=== PATIENT | female | born 1960 | race Caucasian/White ===

== ENCOUNTER 2022-10-16 19:20 | Inpatient (IN) | payer OTHER ==
[2022-10-16 20:19] LABS: Basophils # (A) 0.1 k/uL (0-0.2); Basophils % (A) 1 %; Eosinophils # (A) 0.3 k/uL (0-0.7); Eosinophils % (A) 5 %; HCT 37.2 % (34.0-46.0); HGB 12.5 gm/dL (11.4-16.0); Lymphocytes # (A) 2.5 k/uL (1.0-4.8); Lymphocytes % (A) 35 %; MCH 31.4 pg (25.0-35.0); MCHC 33.6 g/dL (31.0-37.0); MCV 93.5 fL (80.0-100.0); Mean Platelet Volume 9.1; Monocytes # (A) 0.4 k/uL (0-1.0); Monocytes % (A) 6 %; Neutrophils # (A) 3.5 k/uL (1.3-7.7); Neutrophils % (A) 50 %; Platelet Count 219 k/uL (150-450); RBC 3.98 m/uL (3.80-5.40); RDW 13.5 % (11.5-15.5)
[2022-10-16 20:25] LABS: ALT 17 U/L (4-34); AST 27 U/L (14-36); African American GFR (CKD) >90 (>60 ml/min/1.73 sqM); Albumin 3.8 g/dL (3.5-5.0); Alkaline Phosphatase 90 U/L (38-126); Anion Gap 6 mmol/L; Blood Urea Nitrogen 16 mg/dL (7-17); Calcium 8.9 mg/dL (8.4-10.2); Carbon Dioxide 27 mmol/L (22-30); Chloride 106 mmol/L (98-107); Glucose 97 mg/dL (74-99); Lipase 169 U/L (23-300); Non-African American GFR(CKD) 85 (>60 ml/min/1.73 sqM); Potassium 4.1 mmol/L (3.5-5.1); Sodium 139 mmol/L (137-145); Total Bilirubin 0.3 mg/dL (0.2-1.3); Total Protein 6.8 g/dL (6.3-8.2)
[2022-10-16 20:29] LABS: INR 0.9 (<1.2); Partial Thromboplastin Time 22.8 sec (22.0-30.0)
--- NOTE | 2022-10-16 21:12 | XR ---
EXAMINATION TYPE: XR chest 2V DATE OF EXAM: 10/16/2022 COMPARISON: NONE HISTORY: Chest pain TECHNIQUE: 2 views FINDINGS: Heart is normal. Lungs are clear. Diaphragm is normal. Bony thorax is intact. IMPRESSION: No active cardiopulmonary disease. Normal heart.
[2022-10-16] MEDS ORDERED: MORPHINE SULFATE 4 MG/ML SYRINGE IVP STA (22:04)
[2022-10-16] MEDS ORDERED: ACETAMINOPHEN TAB 500 MG TAB PO STA (22:04)
--- NOTE | 2022-10-16 23:41 | CT ---
EXAMINATION TYPE: CT angio chest DATE OF EXAM: 10/16/2022 COMPARISON: None HISTORY: chest pain CT DLP: 1084.4 mGycm Automated exposure control for dose reduction was used. CONTRAST: Performed with IV Contrast, patient injected with 100 mL of Isovue 370. Images obtained from the thoracic inlet to the diaphragm with the IV contrast there are 3-D post proc essed images. There are noncontrast chest images also. There is normal contrast opacification of the pulmonary arteries. No filling defect. There is no medi astinal adenopathy. Thoracic aorta is intact. No aneurysm or dissection. The ascending aorta measures 3.5 cm. There are no hilar masses. There is mild pulmonary emphysema. The lungs are clear of consoli dation. No pleural effusion. No pericardial effusion. The thoracic spine is intact. No compression fracture. The sternum is intact. There is a slight thora cic dextroscoliosis. IMPRESSION: No evidence of pulmonary embolism. No aortic aneurysm or dissection. Mild pulmonary emphysema.
[2022-10-16] MEDS ORDERED: ONDANSETRON 4 MG/2 ML VIAL IVP STA (23:55)
--- NOTE | 2022-10-16 23:55 | ED ---
Chest Pain HPI - General Chief Complaint: Chest Pain Stated Complaint: Chest Pain Time Seen by Provider: 10/16/22 19:23 Source: patient, EMS Mode of arrival: EMS Limitations: no limitations - History of Present Illness Initial Comments: 61-year-old female with no reported past medical history presents emergency department reporting left arm pain. She states that it started last night, approximately 24 hours ago. Describes it as a throbbing burning sensation which radiates down to her elbow. She has no previous history of cardiac disease. Denies fevers, chills or cough. No lower extremity edema. No history of DVT or PE. Denies any associated shortness of breath. Pain did spontaneously resolve however began again this evening. She called her primary care doctor who recommended that she go into the urgent care. Urgent care performed an EKG, was concerned about her symptoms and transported her via EMS to the hospital. She did take 3 full dose aspirin at home. They gave her 1 additional baby aspirin and 1 nitro. The nitro did not alleviate her pain. Does admit to some nausea for which she was given Zofran. Denies ripping or tearing sensation to her back. No other alleviating, precipitating or modifying factors - Related Data Home Medications Medication Instructions Recorded Confirmed Acyclovir [Zovirax] 400 mg PO TID PRN 10/16/22 10/16/22 carisoprodoL [Soma] 350 mg PO TID PRN 10/16/22 10/16/22 Previous Rx's Medication Instructions Recorded Atorvastatin [Lipitor] 40 mg PO HS #30 tab 10/20/22 Valsartan [Diovan] 80 mg PO BID #60 tab 10/20/22 carvediloL [Coreg] 3.125 mg PO BID-W/MEALS #60 tab 10/20/22 Allergies Allergy/AdvReac Type Severity Reaction Status Date / Time Penicillins Allergy Unknown Verified 10/16/22 20:53 Childhood Review of Systems ROS Statement: Those systems with pertinent positive or pertinent negative responses have been documented in the HPI. ROS Other: All systems not noted in ROS Statement are negative. EKG Findings - EKG Comments: EKG Findings:: EKG demonstrates sinus rhythm with a rate of 60. IA interval 161. QRS 94. QTC of 414. There is a biphasic T-wave V1 and V2. No acute ST segment elevations or depressions Past Medical History - Past Family History Mother Additional Family Medical History / Comment(s): TB Father Family Medical History: Coronary Artery Disease (CAD) General Exam Limitations: no limitations General appearance: alert, in no apparent distress Head exam: Present: atraumatic, normocephalic, normal inspection Eye exam: Present: normal appearance, PERRL, EOMI. Absent: scleral icterus, conjunctival injection, periorbital swelling ENT exam: Present: normal exam, mucous membranes moist Neck exam: Present: normal inspection. Absent: tenderness, meningismus, lymphadenopathy Respiratory exam: Present: normal lung sounds bilaterally. Absent: respiratory distress, wheezes, rales, rhonchi, stridor Cardiovascular Exam: Present: regular rate, normal rhythm, normal heart sounds. Absent: systolic murmur, diastolic murmur, rubs, gallop, clicks GI/Abdominal exam: Present: soft, normal bowel sounds. Absent: distended, tenderness, guarding, rebound, rigid Extremities exam: Present: normal inspection, full ROM, normal capillary refill. Absent: tenderness, pedal edema, joint swelling, calf tenderness Back exam: Present: normal inspection Neurological exam: Present: alert, oriented X3, CN II-XII intact Psychiatric exam: Present: normal affect, normal mood Skin exam: Present: warm, dry, intact, normal color. Absent: rash Course Vital Signs 10/16/22 10/16/22 10/17/22 19:21 22:18 01:24 Temperature Pulse Rate 64 73 56 L Pulse Rate [ Pulse Oximetery ] Pulse Rate [ Right Sitting Brachial] Respiratory 20 18 16 Rate Blood Pressure 173/117 173/93 158/95 Blood Pressure [Right Arm Sitting] O2 Sat by Pulse 97 97 96 Oximetry 10/17/22 10/17/22 10/17/22 04:51 07:00 13:50 Temperature Pulse Rate 53 L 59 L 73 Pulse Rate [ Pulse Oximetery ] Pulse Rate [ Right Sitting Brachial] Respiratory 16 18 18 Rate Blood Pressure 154/88 154/88 131/74 Blood Pressure [Right Arm Sitting] O2 Sat by Pulse 98 99 Oximetry 10/17/22 10/17/22 10/17/22 16:33 17:28 19:28 Temperature 98.6 F 98.4 F 97.8 F Pulse Rate Pulse Rate [ Pulse Oximetery ] Pulse Rate [ 62 62 65 Right Sitting Brachial] Respiratory 16 16 16 Rate Blood Pressure Blood Pressure 117/75 117/75 130/75 [Right Arm Sitting] O2 Sat by Pulse 98 98 98 Oximetry 10/17/22 10/17/22 10/18/22 22:10 23:38 01:27 Temperature 97 F L Pulse Rate Pulse Rate [ 63 79 Pulse Oximetery ] Pulse Rate [ Right Sitting Brachial] Respiratory 16 16 Rate Blood Pressure Blood Pressure 112/63 120/69 [Right Arm Sitting] O2 Sat by Pulse 96 Oximetry 10/18/22 10/18/22 10/18/22 02:33 03:40 05:54 Temperature 98.3 F Pulse Rate Pulse Rate [ 63 83 60 Pulse Oximetery ] Pulse Rate [ Right Sitting Brachial] Respiratory 14 Rate Blood Pressure Blood Pressure 141/79 154/82 145/81 [Right Arm Sitting] O2 Sat by Pulse 94 L 100 Oximetry 10/18/22 10/18/22 10/18/22 07:00 08:00 12:00 Temperature 98.5 F Pulse Rate Pulse Rate [ 64 64 67 Pulse Oximetery ] Pulse Rate [ 65 Right Sitting Brachial] Respiratory 18 18 18 Rate Blood Pressure Blood Pressure 145/81 138/83 [Right Arm Sitting] O2 Sat by Pulse 99 99 Oximetry 10/18/22 10/18/22 10/18/22 14:00 16:00 20:00 Temperature 97.7 F Pulse Rate Pulse Rate [ 64 60 65 Pulse Oximetery ] Pulse Rate [ 65 65 Right Sitting Brachial] Respiratory 18 18 16 Rate Blood Pressure Blood Pressure 142/79 [Right Arm Sitting] O2 Sat by Pulse 98 Oximetry 10/18/22 21:36 Temperature Pulse Rate 61 Pulse Rate [ Pulse Oximetery ] Pulse Rate [ Right Sitting Brachial] Respiratory 16 Rate Blood Pressure 128/84 Blood Pressure [Right Arm Sitting] O2 Sat by Pulse 98 Oximetry Chest Pain MDM - MDM Was pt. sent in by a medical professional or institution? no Did you speak to anyone other than the patient for history? EMS Did you review nursing and triage notes? yes and I agree Were old charts reviewed? no Differential Diagnosis? nstemi, stemi, acs, coronary vasospasm, myocarditis, pe, pericarditis, coronary dissection EKG interpreted by me (3pts min.)? yes X-rays interpreted by me (1pt min.)? yes CT interpreted by me (1pt min.)? no U/S interpreted by me (1pt. min.)? no What testing was considered but not performed? (CT, X-rays, U/S, labs)? Why? none What meds were considered but not given? Why? none Did you discuss the management of the patient with other professionals? admitting physician Did you reconcile home meds? yes Was smoking cessation discussed for >3mins.? no Was critical care preformed (if so, how long)? yes 35 minutes Were there social determinants of health that impacted care today? How? (Homelessness, low income, unemployed, alcoholism, drug addiction, transportation, low edu. Level, literacy, decrease access to med. care, [facility], rehab)? none Was there de-escalation of care discussed even if they declined? (Discuss DNR or withdrawal of care, Hospice)? patient is on hospice and is to remain on hospice What co-morbidities impacted this encounter? (DM, HTN, Smoking, COPD, CAD, Cancer, CVA, Hep., AIDS, mental health diagnosis, sleep apnea, morbid obesity)? none Was patient admitted / discharged? Upon arrival patient was placed into room 5. A thorough history and physical exam was performed. A lead EKG is obtained. Patient remained on continuous pu lse ox and cardiac monitoring. Laboratory studies are conducted which demonstrated troponin of 0.494. Patient is sent for a CT of her chest which does not demonstrate [place] embolism, aneurysm or dissection. Patient placed on heparin drip. We'll trend her troponins. Cardiology will be consulted. Patient made nothing by mouth for possible cath Undiagnosed new problem with uncertain prognosis? yes Drug Therapy requiring intensive monitoring for toxicity (Heparin, Nitro, Insulin, Cardizem)? yes, heparin Were any procedures done? no Diagnosis/symptom? acute chest pain, nstemi Acute, or Chronic, or Acute on Chronic? acute Uncomplicated (without systemic symptoms) or Complicated (systemic symptoms)? complicated Side effects of treatment? bleeding Exacerbation, Progression, or Severe Exacerbation] no Poses a threat to life or bodily function? yes Critical Care Time Critical Care Time: Yes Critical Care Time: 35 minutes Disposition Clinical Impression: Chest pain, Acute non-ST elevation myocardial infarction (NSTEMI) Disposition: ADMITTED IP TO THIS [facility] Condition: Stable Is patient prescribed a controlled substance at d/c from ED?: No Time of Disposition: 23:55 Decision to Admit Reason: Admit from EC Decision Date: 10/16/22 Decision Time: 23:55
[2022-10-17] MEDS ORDERED: NALOXONE 0.4 MG/ML 1 ML VIAL IV PRN (00:01)
[2022-10-17] MEDS ORDERED: HEPARIN SODIUM 1,000 UN/ML (10ML VL) IV PRN (00:10)
[2022-10-17] MEDS ORDERED: HEPARIN SODIUM 1,000 UN/ML (10ML VL) IV ONE (00:10)
[2022-10-17] MEDS: HEPARIN SOD,PORK IN 0.45% NACL 25,000 UNIT in 0.45% NACL 1 250ML.BAG IV SCH ×2 (01:26→23:39)
[2022-10-17] MEDS ORDERED: ACETAMINOPHEN TAB 500 MG TAB PO STA (04:39)
[2022-10-17] MEDS: ASPIRIN 81 MG PO SCH (11:06)
[2022-10-17] MEDS: MORPHINE SULFATE 2 MG/ML SYRINGE IVP PRN ×2 (12:10→18:34)
[2022-10-17] MEDS: ONDANSETRON 4 MG/2 ML VIAL IVP PRN (12:10)
--- NOTE | 2022-10-17 12:55 | P.CRDCN ---
History of Present Illness Consult date: 10/17/22 Consult reason: chest pain History of present illness: This is Lalo Restrepo NP, I'm dictating on behalf of Dr. Howard's H&P and A&P The patient was interviewed and examined. HPI: Patient is a pleasant 61-year-old female who initially presented to the hospital with complaints of chest discomfort, pain, numbness. Patient reports that early yesterday morning she woke up to her stomach., Dropping on a roller coaster. She states she got up and administered a Covid test results which was negative. Patient states she lost strength in her legs and lower herself to the ground. She was able to get herself back into her bed, where she states she probably started to feel chest discomfort, left arm numbness and pressure, and a headache. She states the next thing she remembers is waking up around 11 AM the next morning. She reports she was very disoriented at that time, as well as unsure of what day it was or what time it was. This concerned her significantly, and she called her primary care provider for advice. She states that they were unable to get back to her until almost closing time, of which she was advised to go to an urgent care. In the urgent care the patient had an EKG completed which was somewhat suspicious according to the patient, and she was recommended to come to the hospital. The patient presented to the emergency department for further evaluation. In the emergency department her EKG was found to be relatively normal. However she does have elevated troponins 0.494, 0.498, 0.430. We were consulted due to the initial symptoms as well as the troponin elevation. The patient has no reported past medical history except for some chronic pain. The patient was interviewed lying in the bed. She does st ate that she is continuing to have symptoms at this time, stating she has a central chest pressure, with a numbness and tingling feeling that radiates down her arm into her hand. She has received Zofran for nausea as well as morphine for the pain this time. Patient's blood pressure is elevated, her pulse is running high 50s. ROS: [No fever, chills, or rigors] [no cough, phlegm, or expectoration] [no nausea, vomiting, or diarrhea] [no hematuria, dysuria] [no musculoskelatal complaints] [no strokes or seizures] [no skin lesions] EXAMINATION: GENERAL: Well-appearing, well-nourished and in no acute distress. NECK: Supple without JVD or thyromegaly. LUNGS: Breath sounds clear to auscultation bilaterally. Respiration equal and unlabored. No wheezes, rales or rhonchi. HEART: Regular rate and rhythm without murmurs, rubs or gallops. S1 and S2 heard. EXTREMITIES: Normal range of motion, no edema. No clubbing or cyanosis. Peripheral pulses intact and strong. REVIEW OF LABS, ECG & MEDICAL DATA: LABS: White count 7.0, hemoglobin 12.5, platelets 219, sodium 139, potassium 4.1, B1 16, creatinine 0.76, calcium 8.9, magnesium 2.0, serial troponins-0.494, 0.489, 0.430, BNP 664 EKG: Normal sinus rhythm with no ST or elevations or depressions, or T-wave inversions noted. IMAGING: Chest x-ray dated 10/16/2022 demonstrates no active cardiopulmonary disease. Normal heart. CT angiogram of the chest dated 10/16/2022 demonstrates no evidence of pulmonary embolism. No aortic aneurysm or dissection. Mild pulmonary emphysema. VITALS: Pulse 59, respirations 18, blood pressure 154/88, O2 saturation 98% on room air IMPRESSION: 1. Elevated troponins 2. Chest pain/pressure radiating to left arm 3. Left arm paresthesia PLAN: Obtain echocardiogram Check lipid panel Start carvedilol 3.125 mg twice a day Start valsartan 80 mg twice a day Continue heparin Continue aspirin Continue cardiac monitoring Further recommendations based on the patient's results and clinical course Thank you for the consult and allowing us to participate in the care of this patient. Medications and Allergies Home Medications Medication Instructions Recorded Confirmed Type Acyclovir [Zovirax] 400 mg PO TID PRN 10/16/22 10/16/22 History Naproxen [Naprosyn] 500 mg PO BID PRN 10/16/22 10/16/22 History carisoprodoL [Soma] 350 mg PO TID PRN 10/16/22 10/16/22 History Allergies Allergy/AdvReac Type Severity Reaction Status Date / Time Penicillins Allergy Unknown Verified 10/16/22 20:53 Childhood Physical Exam Vitals: Vital Signs Pulse Resp BP Pulse Ox 10/17/22 07:00 59 L 18 154/88 10/17/22 04:51 53 L 16 154/88 98 10/17/22 01:24 56 L 16 158/95 96 10/16/22 22:18 73 18 173/93 97 10/16/22 19:21 64 20 173/117 97 Intake and Output 10/16/22 10/17/22 10/17/22 22:59 06:59 14:59 Other: Weight 98.883 kg Results 10/16/22 19:22 10/16/22 19:22 Cardiac Enzymes 10/16/22 10/16/22 10/17/22 Range/Units 19:22 19:22 03:50 AST 27 (14-36) U/L Troponin I 0.494 H* 0.489 H* (0.000-0.034) ng/mL 10/17/22 Range/Units 07:54 AST (14-36) U/L Troponin I 0.430 H* (0.000-0.034) ng/mL Coagulation 10/16/22 10/17/22 Range/Units 19:22 07:54 PT 10.0 (9.0-12.0) sec APTT 22.8 32.3 H (22.0-30.0) sec CBC 10/16/22 Range/Units 19:22 WBC 7.0 (3.8-10.6) k/uL RBC 3.98 (3.80-5.40) m/uL Hgb 12.5 (11.4-16.0) gm/dL Hct 37.2 (34.0-46.0) % Plt Count 219 (150-450) k/uL Comprehensive Metabolic Panel 10/16/22 Range/Units 19:22 Sodium 139 (137-145) mmol/L Potassium 4.1 (3.5-5.1) mmol/L Chloride 106 (98-107) mmol/L Carbon Dioxide 27 (22-30) mmol/L BUN 16 (7-17) mg/dL Creatinine 0.76 (0.52-1.04) mg/dL Glucose 97 (74-99) mg/dL Calcium 8.9 (8.4-10.2) mg/dL AST 27 (14-36) U/L ALT 17 (4-34) U/L Alkaline Phosphatase 90 (38-126) U/L Total Protein 6.8 (6.3-8.2) g/dL Albumin 3.8 (3.5-5.0) g/dL Current Medications Generic Name Dose Route Start Last Admin Trade Name Freq PRN Reason Stop Dose Admin Aspirin 81 mg 10/17/22 09:45 10/17/22 11:06 Aspirin 81 Mg PO Not Given DAILY [facility] Carvedilol 3.125 mg 10/17/22 12:30 Carvedilol 3.125 Mg Tab PO BID-W/MEALS [facility] Heparin Sodium (Porcine) 0 unit 10/17/22 00:10 Heparin Sodium 1,000 Un/Ml (10ml Vl) IV PER PROTOCOL PRN Low PTT Protocol Heparin Sodium/Sodium Chloride 250 mls @ 9.987 mls/hr 10/17/22 00:15 10/17/22 01:26 25,000 unit/ Sodium Chloride IV 10.1 units/kg/hr .Q24H SEA 9.987 mls/hr Administration Protocol 10.1 UNITS/KG/HR Morphine Sulfate 2 mg 10/17/22 10:25 10/17/22 12:10 Morphine Sulfate 2 Mg/Ml Syringe IVP 2 mg Q4HR PRN Administration Pain/Discomfort Naloxone HCl 0.2 mg 10/17/22 00:01 Naloxone 0.4 Mg/Ml 1 Ml Vial IV Q2M PRN Opioid Reversal Ondansetron HCl 4 mg 10/17/22 10:26 10/17/22 12:10 Ondansetron 4 Mg/2 Ml Vial IVP 4 mg Q6HR PRN Administration Nausea And Vomiting Valsartan 80 mg 10/17/22 12:30 Valsartan 80 Mg Tab PO BID [facility] Intake and Output 10/16/22 10/17/22 10/17/22 22:59 06:59 14:59 Other: Weight 98.883 kg 10/16/22 19:22 10/16/22 19:22
[2022-10-17] MEDS: carvediloL 3.125 MG TAB PO SCH ×2 (13:57→16:07)
[2022-10-17] MEDS: VALSARTAN 80 MG TAB PO SCH ×2 (15:17→20:05)
[2022-10-17 16:50] LABS: Chol/HDL Ratio 2.62 Ratio; VLDL Calculation 18.08 mg/dL (5.00-40.00)
--- NOTE | 2022-10-17 19:07 | CA ---
Transthoracic Echo Report Name: Kristin Adames Age: 61 Gender: F : 1960 Exam Date: 10/17/2022 13:41 Exam Location: [facility] Ht (in): 73 Wt (lb): 218 Ordering Physician: Lalo Restrepo Attending/Referring Phys: Senior Teller Maureen Ocampo RDCS Procedure CPT: Indications: Chest Pain Cardiac Hx: Technical Quality: Technically difficult study Contrast 1: Lumason Total Dose (mL): 4 Contrast 2: Total Dose (mL): MEASUREMENTS (Male / Female) Normal Values 2D ECHO LV Diastolic Diameter PLAX 3.8 cm 4.2 - 5.9 / 3.9 - 5.3 cm LV Systolic Diameter PLAX 2.1 cm IVS Diastolic Thickness 1.8 cm 0.6 - 1.0 / 0.6 - 0.9 cm LVPW Diastolic Thickness 1.5 cm 0.6 - 1.0 / 0.6 - 0.9 cm LV Relative Wall Thickness 0.9 RV Internal Dim ED PLAX 2.8 cm LA Volume 54.9 cm??? 18 - 58 / 22 - 52 cm??? M-MODE Aortic Root Diameter MM 2.1 cm LA Systolic Diameter MM 4.1 cm LA Ao Ratio MM 2.0 AV Cusp Separation MM 2.0 cm DOPPLER AV Peak Velocity 141.3 cm/s AV Peak Gradient 8.0 mmHg AV Mean Velocity 101.5 cm/s AV Mean Gradient 4.5 mmHg AV Velocity Time Integral 29.0 cm MV Area PHT 4.3 cm??? Mitral E Point Velocity 101.7 cm/s Mitral A Point Velocity 59.6 cm/s Mitral E to A Ratio 1.7 MV Deceleration Time 178.3 ms TR Peak Velocity 268.7 cm/s TR Peak Gradient 28.9 mmHg Right Ventricular Systolic Press 31.4 mmHg FINDINGS Left Ventricle Severely increased left ventricular wall thickness. Normal left ventricular systolic function with no obvious regional wall motion abnormalities. Left ventricular ejection fraction is estimated at 55-60 %. Right Ventricle Normal right ventricular size and function. Right ventricular systolic pressure within normal limits. Right Atrium Normal right atrial size. Left Atrium Mildly increased left atrial volume. Mitral Valve Structurally normal mitral valve. Mild mitral regurgitation. Aortic Valve Trileaflet aortic valve. No aortic valve stenosis or regurgitation. Tricuspid Valve Structurally normal tricuspid valve. Mild tricuspid regurgitation. Pulmonic Valve Trace pulmonic regurgitation. Pericardium No pericardial effusion. Aorta Normal size aortic root and proximal ascending aorta. CONCLUSIONS LVH with preserved systolic function Previewed by: Dr. Beau Howard MD (Electronically Signed) Final Date: 17 October 2022 19:06
[2022-10-18] MEDS: MORPHINE SULFATE 2 MG/ML SYRINGE IVP PRN ×3 (02:33→19:43)
[2022-10-18] MEDS: carvediloL 3.125 MG TAB PO SCH ×2 (06:22→17:31)
[2022-10-18] MEDS ORDERED: NITROGLYCERIN SL TABS 0.4 MG TAB SUBLINGUAL PRN (08:46)
[2022-10-18] MEDS ORDERED: ALPRAZolam 0.25 MG TAB PO PRN (08:46)
[2022-10-18] MEDS ORDERED: ASPIRIN 325 MG TAB PO STA (08:46)
[2022-10-18] MEDS ORDERED: ALPRAZolam 0.5 MG TAB PO PRN (08:46)
[2022-10-18 09:14] LABS: Basophils # (A) 0.1 k/uL (0-0.2); Basophils % (A) 1 %; Eosinophils # (A) 0.3 k/uL (0-0.7); Eosinophils % (A) 6 %; HCT 37.8 % (34.0-46.0); HGB 12.3 gm/dL (11.4-16.0); Lymphocytes % (A) 38 %; MCH 30.5 pg (25.0-35.0); MCHC 32.4 g/dL (31.0-37.0); Mean Platelet Volume 8.8; Monocytes # (A) 0.3 k/uL (0-1.0); Monocytes % (A) 5 %; Neutrophils # (A) 2.5 k/uL (1.3-7.7); Neutrophils % (A) 47 %; Platelet Count 188 k/uL (150-450); RBC 4.02 m/uL (3.80-5.40); RDW 13.8 % (11.5-15.5); WBC 5.3 k/uL (3.8-10.6)
[2022-10-18] MEDS: ASPIRIN 81 MG PO SCH (09:19)
[2022-10-18] MEDS: VALSARTAN 80 MG TAB PO SCH ×2 (09:19→19:53)
[2022-10-18 10:08] LABS: African American GFR (CKD) >90 (>60 ml/min/1.73 sqM); Anion Gap 2 mmol/L; Blood Urea Nitrogen 14 mg/dL (7-17); Calcium 8.8 mg/dL (8.4-10.2); Carbon Dioxide 32 mmol/L (22-30); Chloride 106 mmol/L (98-107); Glucose 93 mg/dL (74-99); Non-African American GFR(CKD) 86 (>60 ml/min/1.73 sqM); Potassium 4.4 mmol/L (3.5-5.1); Sodium 140 mmol/L (137-145)
[2022-10-18 11:54] LABS: Prothrombin Time 10.5 sec (9.0-12.0)
--- NOTE | 2022-10-18 12:37 | P.PN ---
Subjective Progress Note Date: 10/18/22 This is Lalo Restrepo NP, I'm dictating on behalf of Dr. Howard's H&P and A&P. Patient was interviewed and examined. Patient is a pleasant 61-year-old female who initially presented to Hospital with acute chest pain. Patient had a normal EKG, but elevated troponin. Patient reports that her symptoms have mostly improved. She states that she has minimal numbness in her left arm. However during the time that we were giving the patient, she had a episode of chest pain which she states was in the same spot that he has been on the left side of her chest. We obtained a repeat EKG, which did not demonstrate any significant changes. The patient was started on carvedilol and valsartan yesterday, which has significantly improved her blood pressure. Patient had a lipid panel completed, which is insignificant. Patient had an echocardiogram completed yesterday which demonstrated left ventricular h ypertrophy with preserved systolic function. GENERAL: Well-appearing, well-nourished and in no acute distress. NECK: Supple without JVD or thyromegaly. LUNGS: Breath sounds clear to auscultation bilaterally. Respiration equal and unlabored. No wheezes, rales or rhonchi. HEART: Regular rate and rhythm without murmurs, rubs or gallops. S1 and S2 heard. EXTREMITIES: Normal range of motion, no edema. No clubbing or cyanosis. Peripheral pulses intact and strong. VITALS: Temp 98.5, pulse 64, respirations 18, blood pressure 145/81, O2 saturation 99% on room air TELEMETRY: Normal sinus rhythm LABS: White count 5.3, hemoglobin 12.3, platelets 188, sodium 140, potassium 4.4, B1 14, creatinine 0.75, calcium 8.8 IMPRESSION: 1. Elevated troponins 2. Chest pain/pressure radiating to left arm 3. Left arm paresthesia PLAN: The patient has had an TX and is likely posterior. Continued chest pain is concerning. Start atorvastatin 40 mg daily. Continue valsartan and carvedilol. Schedule patient for coronary angiogram tomorrow. Nothing by mouth at midnight except for meds. Further recommendations based on the patient's clinical course. Objective - Vital Signs Vital signs: Vital Signs Temp 98.5 F 10/18/22 07:00 Pulse 65 10/18/22 08:00 Resp 18 10/18/22 08:00 BP 145/81 10/18/22 07:00 Pulse Ox 99 10/18/22 07:00 FiO2 Intake & Output 10/17/22 10/18/22 10/18/22 18:59 06:59 18:59 Intake Total 135.99 110.553 126.836 Balance 135.99 110.553 126.836 Weight 98.883 kg Intake: Intake, IV Titration 135.99 110.553 126.836 Amount Heparin Sod,Pork in 0.45% 135.99 110.553 126.836 NaCl 25,000 unit In 0.45 % NaCl 1 250ml.bag @ 10.1 UNITS/KG/HR 9.987 mls/hr IV .Q24H SEA Rx#: [id number] Other: # Voids 1 - Labs CBC & Chem 7: 10/18/22 08:41 10/18/22 08:41 Labs: Abnormal Lab Results - Last 24 Hours (Table) 10/17/22 10/17/22 10/17/22 Range/Units 07:54 14:30 21:14 APTT 30.6 H 58.0 H (22.0-30.0) sec Carbon Dioxide (22-30) mmol/L HDL Cholesterol 67.90 H (40.00-60.00) mg/dL 10/18/22 10/18/22 Range/Units 08:41 08:41 APTT 55.7 H (22.0-30.0) sec Carbon Dioxide 32 H (22-30) mmol/L HDL Cholesterol (40.00-60.00) mg/dL
[2022-10-18] MEDS: ONDANSETRON 4 MG/2 ML VIAL IVP PRN (14:54)
--- NOTE | 2022-10-18 16:19 | P.HPIM ---
History of Present Illness H&P Date: 10/17/22 Chief Complaint: Chest pain 61-year-old female with no reported past medical history presents emergency department reporting left arm pain. She states that it started last night, approximately 24 hours ago. Describes it as a throbbing burning sensation which radiates down to her elbow. She has no previous history of cardiac disease. Denies fevers, chills or cough. No lower extremity edema. No history of DVT or PE. Denies any associated shortness of breath. Pain did spontaneously resolve however began again this evening. She called her primary care doctor who r ecommended that she go into the urgent care. Urgent care performed an EKG, was concerned about her symptoms and transported her via EMS to the hospital. She did take 3 full dose aspirin at home. They gave her 1 additional baby aspirin and 1 nitro. The nitro did not alleviate her pain. Does admit to some nausea for which she was given Zofran. Denies ripping or tearing sensation to her back. No other alleviating, precipitating or modifying factors LABS: White count 7.0, hemoglobin 12.5, platelets 219, sodium 139, potassium 4.1, B1 16, creatinine 0.76, calcium 8.9, magnesium 2.0, serial troponins-0.494, 0.489, 0.430, BNP 664 EKG: Normal sinus rhythm with no ST or elevations or depressions, or T-wave inversions noted. IMAGING: Chest x-ray dated 10/16/2022 demonstrates no active cardiopulmonary disease. Normal heart. CT angiogram of the chest dated 10/16/2022 demonstrates no evidence of pulmonary embolism. No aortic aneurysm or dissection. Mild pulmonary emphysema. Review of Systems REVIEW OF SYSTEMS: CONSTITUTIONAL: No fever, no malaise, no fatigue. HEENT: No recent visual problems or hearing problems. Denied any sore throat. CARDIOVASCULAR: No chest pain, orthopnea, PND, no palpitations, no syncope. PULMONARY: No shortness of breath, no cough, no hemoptysis. GASTROINTESTINAL: No diarrhea, no nausea, no vomiting, no abdominal pain. NEUROLOGICAL: No headaches, no weakness, no numbness. HEMATOLOGICAL: Denies any bleeding or petechiae. GENITOURINARY: Denies any burning micturition, frequency, or urgency. MUSCULOSKELETAL/RHEUMATOLOGICAL: Denies any joint pain, swelling, or any muscle pain. ENDOCRINE: Denies any polyuria or polydipsia. The rest of the 14-point review of systems is negative. Past Medical History - Past Family History Mother Additional Family Medical History / Comment(s): TB Father Family Medical History: Coronary Artery Disease (CAD) Medications and Allergies Home Medications Medication Instructions Recorded Confirmed Type Acyclovir [Zovirax] 400 mg PO TID PRN 10/16/22 10/16/22 History Naproxen [Naprosyn] 500 mg PO BID PRN 10/16/22 10/16/22 History carisoprodoL [Soma] 350 mg PO TID PRN 10/16/22 10/16/22 History Allergies Allergy/AdvReac Type Severity Reaction Status Date / Time Penicillins Allergy Unknown Verified 10/16/22 20:53 Childhood Physical Exam Vitals: Vital Signs Pulse Resp BP Pulse Ox 10/17/22 07:00 59 L 18 154/88 10/17/22 04:51 53 L 16 154/88 98 10/17/22 01:24 56 L 16 158/95 96 10/16/22 22:18 73 18 173/93 97 10/16/22 19:21 64 20 173/117 97 Intake and Output 10/16/22 10/17/22 10/17/22 22:59 06:59 14:59 Other: Weight 98.883 kg PHYSICAL EXAMINATION: GENERAL: The patient is alert and oriented x3, not in any acute distress. Well developed, well nourished. HEENT: Pupils are round and equally reacting to light. EOMI. No scleral icterus. No conjunctival pallor. Normocephalic, atraumatic. No pharyngeal erythema. No thyromegaly. CARDIOVASCULAR: S1 and S2 present. No murmurs, rubs, or gallops. PULMONARY: Chest is clear to auscultation, no wheezing or crackles. ABDOMEN: Soft, nontender, nondistended, normoactive bowel sounds. No palpable organomegaly. MUSCULOSKELETAL: No joint swelling or deformity. EXTREMITIES: No cyanosis, clubbing, or pedal edema. NEUROLOGICAL: Gross neurological examination did not reveal any focal deficits. SKIN: No rashes. Results CBC & Chem 7: 10/18/22 08:41 10/18/22 08:41 Labs: Abnormal Lab Results - Last 24 Hours (Table) 10/16/22 10/17/22 10/17/22 Range/Units 19:22 03:50 07:54 APTT (22.0-30.0) sec Troponin I 0.494 H* 0.489 H* 0.430 H* (0.000-0.034) ng/mL 10/17/22 Range/Units 07:54 APTT 32.3 H (22.0-30.0) sec Troponin I (0.000-0.034) ng/mL Assessment and Plan Assessment: 1. Non-ST elevation MS - We will admit to telemetry and monitor EKG and trend troponin - Patient has been placed on aspirin; IV heparin per protocol; cardiology evaluated patient and recommending to start patient on Coreg 3.125 mg twice a day and valsartan 80 mg twice a day - Lipid panel was ordered - Obtain 2-D echo for left ventricular function 2. Uncontrolled hypertension; patient not on any antihypertensive therapy at home - Has been placed on Coreg 3.125 mg twice a day and was admitted milligrams twice a day per cardiology recommendations 3. Chronic back pain; patient takes Soma and Naprosyn at home 4. Hyperlipidemia; Lipitor 80 mg Followed by 40 Mg by Mouth Daily at Bedtime DVT prophylaxis/IV heparin CODE STATUS; full code
--- NOTE | 2022-10-18 16:25 | P.PN ---
Subjective Progress Note Date: 10/18/22 Principal diagnosis: Chest pain Non-ST elevation NM 61-year-old female with no reported past medical history presents emergency department reporting left arm pain. She states that it started last night, approximately 24 hours ago. Describes it as a throbbing burning sensation which radiates down to her elbow. She has no previous history of cardiac disease. Denies fevers, chills or cough. No lower extremity edema. No history of DVT or PE. Denies any associated shortness of breath. Pain did spontaneously resolve however began again this evening. She called her primary care doctor who recommended that she go into the urgent care. Urgent care performed an EKG, was concerned about her symptoms and transported her via EMS to the hospital. She did take 3 full dose aspirin at home. They gave her 1 additional baby aspirin and 1 nitro. The nitro did not alleviate her pain. Does admit to some nausea for which she was given Zofran. Denies ripping or tearing sensation to her back. No other alleviating, precipitating or modifying factors LABS: White count 7.0, hemoglobin 12.5, platelets 219, sodium 139, potassium 4.1, B1 16, creatinine 0.76, calcium 8.9, magnesium 2.0, serial troponins-0.494, 0.489, 0.430, BNP 664 EKG: Normal sinus rhythm with no ST or elevations or depressions, or T-wave inversions noted. IMAGING: Chest x-ray dated 10/16/2022 demonstrates no active cardiopulmonary disease. Normal heart. CT angiogram of the chest dated 10/16/2022 demonstrates no evidence of pulmonary embolism. No aortic aneurysm or dissection. Mild pulmonary emphysema. 10/18/2022 Patient reports some chest pain/pressure radiating to left arm with associated left arm paresthesia Blood work reveals WBC 5.3, hemoglobin 12.3 and platelet count of 18 sodium 140, potassium 4.4, BUN/creatinine of 14/0.75 with calcium of 8.8 -- Patient admitted with chest pain with likely posterior NM; patient has been placed on Lipitor 40 mg daily; plan to continue was sudden and Coreg monitoring blood pressure closely - Patient is scheduled for coronary angiogram tomorrow Objective - Vital Signs Vital signs: Vital Signs Temp 98.5 F 10/18/22 07:00 Pulse 65 10/18/22 08:00 Resp 18 10/18/22 08:00 BP 145/81 10/18/22 07:00 Pulse Ox 99 10/18/22 07:00 FiO2 Intake & Output 10/17/22 10/18/22 10/18/22 18:59 06:59 18:59 Intake Total 135.99 110.553 126.836 Balance 135.99 110.553 126.836 Weight 98.883 kg Intake: Intake, IV Titration 135.99 110.553 126.836 Amount Heparin Sod,Pork in 0.45% 135.99 110.553 126.836 NaCl 25,000 unit In 0.45 % NaCl 1 250ml.bag @ 10.1 UNITS/KG/HR 9.987 mls/hr IV .Q24H [facility] Rx#: [id number] Other: # Voids 1 - Exam GENERAL: Well-appearing, well-nourished and in no acute distress. NECK: Supple without JVD or thyromegaly. LUNGS: Breath sounds clear to auscultation bilaterally. Respiration equal and unlabored. No wheezes, rales or rhonchi. HEART: Regular rate and rhythm without murmurs, rubs or gallops. S1 and S2 heard. EXTREMITIES: Normal range of motion, no edema. No clubbing or cyanosis. Peripheral pulses intact and strong. - Labs CBC & Chem 7: 10/18/22 08:41 10/18/22 08:41 Labs: Abnormal Lab Results - Last 24 Hours (Table) 10/17/22 10/17/22 10/17/22 Range/Units 07:54 14:30 21:14 APTT 30.6 H 58.0 H (22.0-30.0) sec Carbon Dioxide (22-30) mmol/L HDL Cholesterol 67.90 H (40.00-60.00) mg/dL 10/18/22 10/18/22 Range/Units 08:41 08:41 APTT 55.7 H (22.0-30.0) sec Carbon Dioxide 32 H (22-30) mmol/L HDL Cholesterol (40.00-60.00) mg/dL Assessment and Plan Assessment: 1. Non-ST elevation NM - We will admit to telemetry and monitor EKG and trend troponin - Patient has been placed on aspirin; IV heparin per protocol; cardiology evaluated patient and recommending to start patient on Coreg 3.125 mg twice a day and valsartan 80 mg twice a day - Lipid panel was ordered - Obtain 2-D echo for left ventricular function 2. Uncontrolled hypertension; patient not on any antihypertensive therapy at home - Has been placed on Coreg 3.125 mg twice a day and was admitted milligrams twice a day per cardiology recommendations 3. Chronic back pain; patient takes Soma and Naprosyn at home 4. Hyperlipidemia; Lipitor 80 mg Followed by 40 Mg by Mouth Daily at Bedtime DVT prophylaxis/IV heparin CODE STATUS; full code
[2022-10-18] MEDS: ATORVASTATIN 40 MG TAB PO SCH (19:42)
[2022-10-18] MEDS: HEPARIN SOD,PORK IN 0.45% NACL 25,000 UNIT in 0.45% NACL 1 250ML.BAG IV SCH (19:45)
[2022-10-18 21:37] VITALS: RESP 16
[2022-10-19] MEDS: MORPHINE SULFATE 2 MG/ML SYRINGE IVP PRN ×4 (02:33→23:00)
[2022-10-19] MEDS ORDERED: ASPIRIN 325 MG TAB PO ONE (06:00)
[2022-10-19] MEDS ORDERED: ATORVASTATIN 80 MG TAB PO ONE (06:00)
[2022-10-19 06:03] LABS: Glucose,Whole Blood 96 mg/dL (70-110)
[2022-10-19 06:40] LABS: Basophils # (A) 0.1 k/uL (0-0.2); Basophils % (A) 1 %; Eosinophils # (A) 0.3 k/uL (0-0.7); Eosinophils % (A) 5 %; HCT 37.5 % (34.0-46.0); Lymphocytes # (A) 2.6 k/uL (1.0-4.8); Lymphocytes % (A) 44 %; MCH 30.5 pg (25.0-35.0); MCV 95.2 fL (80.0-100.0); Mean Platelet Volume 8.6; Monocytes # (A) 0.3 k/uL (0-1.0); Monocytes % (A) 5 %; Neutrophils # (A) 2.6 k/uL (1.3-7.7); Neutrophils % (A) 43 %; Platelet Count 206 k/uL (150-450); RBC 3.94 m/uL (3.80-5.40); RDW 13.6 % (11.5-15.5)
[2022-10-19] MEDS: VALSARTAN 80 MG TAB PO SCH ×2 (06:49→22:53)
[2022-10-19] MEDS: carvediloL 3.125 MG TAB PO SCH ×2 (06:49→18:01)
[2022-10-19] MEDS: ASPIRIN 81 MG PO SCH (06:50)
[2022-10-19 06:55] LABS: African American GFR (CKD) >90 (>60 ml/min/1.73 sqM); Anion Gap 3 mmol/L; Blood Urea Nitrogen 11 mg/dL (7-17); Calcium 8.8 mg/dL (8.4-10.2); Carbon Dioxide 32 mmol/L (22-30); Chloride 107 mmol/L (98-107); Glucose 92 mg/dL (74-99); Non-African American GFR(CKD) 85 (>60 ml/min/1.73 sqM); Potassium 4.3 mmol/L (3.5-5.1); Sodium 142 mmol/L (137-145)
[2022-10-19] MEDS ORDERED: HEPARIN SODIUM,PORCINE 10,000 UNIT in SODIUM CHLORIDE 0.9% 1,000 ML IRRIGATION PRN (07:00)
[2022-10-19] MEDS ORDERED: HEPARIN SODIUM,PORCINE 2,500 UNIT in SODIUM CHLORIDE 0.9% 250 ML IRRIGATION PRN (07:00)
--- NOTE | 2022-10-19 11:07 | P.PN ---
Subjective From records: 61-year-old female with no reported past medical history presents emergency department reporting left arm pain. She states that it started last night, approximately 24 hours ago. Describes it as a throbbing burning sensation which radiates down to her elbow. She has no previous history of cardiac disease. Denies fevers, chills or cough. No lower extremity edema. No history of DVT or PE. Denies any associated shortness of breath. Pain did spontaneously resolve however began again this evening. She called her primary care doctor who recommended that she go into the urgent care. Urgent care performed an EKG, was concerned about her symptoms and transported her via EMS to the hospital. She did take 3 full dose aspirin at home. They gave her 1 additional baby aspirin and 1 nitro. The nitro did not alleviate her pain. Does admit to some nausea for which she was given Zofran. Denies ripping or tearing sensation to her back. No other alleviating, precipitating or modifying factors LABS: White count 7.0, hemoglobin 12.5, platelets 219, sodium 139, potassium 4.1, B1 16, creatinine 0.76, calcium 8.9, magnesium 2.0, serial troponins-0.494, 0.489, 0.430, BNP 664 EKG: Normal sinus rhythm with no ST or elevations or depressions, or T-wave inversions noted. IMAGING: Chest x-ray dated 10/16/2022 demonstrates no active cardiopulmonary disease. Normal heart. CT angiogram of the chest dated 10/16/2022 demonstrates no evidence of pulmonary embolism. No aortic aneurysm or dissection. Mild pulmonary emphysema. 10/18/2022 Patient reports some chest pain/pressure radiating to left arm with associated left arm paresthesia Blood work reveals WBC 5.3, hemoglobin 12.3 and platelet count of 18 sodium 140, potassium 4.4, BUN/creatinine of 14/0.75 with calcium of 8.8 -- Patient admitted with chest pain with likely posterior HI; patient has been placed on Lipitor 40 mg daily; plan to continue was sudden and Coreg monitoring blood pressure closely - Patient is scheduled for coronary angiogram tomorrow resuming the care of the patient 10-19-22 No chest pain, persistent left arm. Since admission 11/20, no history of trauma, can move her arm above her head Suspected non-STEMI, kept on heparin drip Plan for cardiac cath today Patient also on baby aspirin Objective - Vital Signs Vital signs: Vital Signs Temp 97.5 F L 10/19/22 08:00 Pulse 59 L 10/19/22 08:00 Resp 16 10/19/22 08:00 BP 149/81 10/19/22 08:00 Pulse Ox 95 10/19/22 08:00 FiO2 Intake & Output 10/18/22 10/19/22 10/19/22 18:59 06:59 18:59 Intake Total 126.836 123.164 Balance 126.836 123.164 Intake: Intake, IV Titration 126.836 123.164 Amount Heparin Sod,Pork in 0.45% 126.836 123.164 NaCl 25,000 unit In 0.45 % NaCl 1 250ml.bag @ 10.1 UNITS/KG/HR 9.987 mls/hr IV .[facility] Rx#: [id number] Other: Voiding Method Toilet Toilet # Voids 2 3 - Exam GENERAL: The patient is alert and oriented x3, not in any acute distress. Well developed, well nourished. HEENT: Pupils are round and equally reacting to light. EOMI. No scleral icterus. No conjunctival pallor. Normocephalic, atraumatic. No pharyngeal erythema. No thyromegaly. CARDIOVASCULAR: S1 and S2 present. No murmurs, rubs, or gallops. PULMONARY: Chest is clear to auscultation, no wheezing or crackles. ABDOMEN: Soft, nontender, nondistended, normoactive bowel sounds. No palpable organomegaly. MUSCULOSKELETAL: No joint swelling or deformity. EXTREMITIES: No cyanosis, clubbing, or pedal edema. NEUROLOGICAL: Gross neurological examination did not reveal any focal deficits. SKIN: No rashes. no petechiae. - Labs CBC & Chem 7: 10/19/22 05:39 10/19/22 05:39 Labs: Abnormal Lab Results - Last 24 Hours (Table) 10/19/22 10/19/22 Range/Units 00:13 05:39 APTT 48.5 H (22.0-30.0) sec Carbon Dioxide 32 H (22-30) mmol/L Assessment and Plan Assessment: 1. Non-ST elevation HI - We will admit to telemetry and monitor EKG and trend troponin - Patient has been placed on aspirin; IV heparin per protocol; cardiology evaluated patient and recommending to start patient on Coreg 3.125 mg twice a day and valsartan 80 mg twice a day - Lipid panel was ordered - Obtain 2-D echo: Ejection fraction 55-60% 2. Uncontrolled hypertension; better controlled now - Has been placed on Coreg 3.125 mg twice a day and was admitted milligrams twice a day per cardiology recommendations 3. Chronic back pain; patient takes Soma and Naprosyn at home 4. Hyperlipidemia; Lipitor 80 mg Followed by 40 Mg by Mouth Daily at Bedtime DVT prophylaxis/IV heparin CODE STATUS; full code
[2022-10-19] MEDS ORDERED: VERAPAMIL 2.5 MG/ML 2 ML AMP ONE (11:19)
[2022-10-19] MEDS ORDERED: IV FLUID CONTINUATION 1,000 ML IV ONE (11:34)
[2022-10-19] MEDS ORDERED: fentaNYL (PF) 50 MCG/ML 2 ML AMP ONE (11:43)
[2022-10-19] MEDS ORDERED: HEPARIN SODIUM 1,000 UN/ML (10ML VL) ONE (11:43)
[2022-10-19] MEDS ORDERED: MIDAZOLAM 2 MG/2 ML VIAL IVP ONE (11:47)
[2022-10-19] MEDS: fentaNYL (PF) 50 MCG/ML 2 ML AMP IVP ONE ×2 (11:47→11:51)
[2022-10-19] MEDS ORDERED: LIDOCAINE 1% INJ 10MG/ML (5 ML VIAL-PF) SQ ONE (11:48)
[2022-10-19] MEDS ORDERED: SODIUM CHLORIDE 0.9% 1,000 ML IV ONE (11:51)
[2022-10-19] MEDS ORDERED: VERAPAMIL SYRINGE (5 MG/10 ML) INTRAARTER ONE (11:55)
[2022-10-19] MEDS ORDERED: HEPARIN SODIUM 1,000 UN/ML (10ML VL) IVP ONE (11:59)
[2022-10-19] MEDS ORDERED: IOPAMIDOL-370 125ML BTL INJ ONE (12:05)
[2022-10-19] MEDS ORDERED: RX INFO: IV CONTRAST WAS GIVEN 1 EACH MISC MISCELLANE PRN (12:37)
--- NOTE | 2022-10-19 13:55 | CC ---
CARDIAC CATHETERIZATION REPORT INDICATION: Acute van-HF-[id number] elevation KS. PROCEDURE NOTE: After obtaining informed consent, left heart catheterization and coronary angiogram were performed via the right radial artery using size 3.5 right and left Matilda catheters. Pressures were obtained with the right Matilda catheter. The patient tolerated the procedure well without any obvious immediate complications. She received moderate conscious sedation. Total sedation time was 17 minutes. Right radial artery access was obtained using a modified Seldinger technique. A 6- Albanian sheath was placed. Catheters and wires were floated into the ascending aorta under fluoroscopic guidance. The patient received 5 mg of verapamil and 3000 units of heparin per protocol. She was on IV heparin prior to coming in, that was stopped A TR band was used for hemostasis. FINDINGS: 1. Hemodynamics: Left ventricular end-diastolic pressure is 15 mm. There is no significant gradient across the aortic valve. 2. Left ventriculogram: Left ventriculogram is not performed. 3. Angiographic Data: a.Left main coronary artery: Left main coronary artery is a normal-sized vessel and is free of stenosis. Divides into left anterior descending coronary artery and circumflex coronary artery. LAD and its branches, circumflex coronary artery and its branches are free of significant stenosis. CONCLUSIONS: 1. Normal coronary arteries. 2. Right-dominant circulation. PLAN: The patient's chest discomfort is probably noncardiac in origin. MMODL / IJN: [id number] /
[2022-10-19] MEDS: SODIUM CHLORIDE 0.9% 1,000 ML IV SCH (18:01)
[2022-10-19] MEDS: ATORVASTATIN 40 MG TAB PO SCH (21:17)
[2022-10-20] MEDS: carvediloL 3.125 MG TAB PO SCH (06:37)
[2022-10-20] MEDS: SODIUM CHLORIDE 0.9% 1,000 ML IV SCH (06:38)
[2022-10-20] MEDS: MORPHINE SULFATE 2 MG/ML SYRINGE IVP PRN (06:44)
[2022-10-20] MEDS: VALSARTAN 80 MG TAB PO SCH (09:15)
[2022-10-20] MEDS: ASPIRIN 81 MG PO SCH (09:15)
[2022-10-20 10:28] VITALS: BP 130/77; PULSE 57; TEMP 97.8
--- NOTE | 2022-10-20 10:50 | P.PN ---
Subjective Progress Note Date: 10/20/22 HISTORY OF PRESENT ILLNESS: Patient examined this morning at the bedside. Patient underwent cardiac cath yesterday revealing normal coronary arteries. Patient denies chest pain or pre ssure. Denies SOB. Vital signs are stable. Echo completed revealing ejection fraction 55-60%, mild MR, mild TR PHYSICAL EXAM: VITAL SIGNS: Reviewed. GENERAL: Well-developed in no acute distress. NECK: Supple. No JVD or thyromegaly LUNGS: Respirations even and unlabored. Lungs essentially clear to auscultation bilaterally. HEART: Regular rate and rhythm. S1 and S2 heard. EXTREMITIES: Normal range of motion. No clubbing or cyanosis. Peripheral pulses intact. No lower extremity edema ASSESSMENT: Chest pain NSTEMI, s/p cardiac cath revealing normal coronary arteries PLAN: Continue current cardiac medications Patient is currently stable from a cardiac standpoint Patient to follow up outpatient with Dr. Howard Nurse practitioner note has been reviewed by physician. Signing provider agrees with the documented findings, assessment, and plan of care. Objective - Vital Signs Vital signs: Vital Signs Temp 97.8 F 10/20/22 08:00 Pulse 57 L 10/20/22 08:00 Resp 16 10/20/22 08:00 BP 130/77 10/20/22 08:00 Pulse Ox 96 10/20/22 08:00 FiO2 Intake & Output 10/19/22 10/20/22 10/20/22 18:59 06:59 18:59 Intake Total 850 118 Balance 850 118 Intake: IV 250 Intake, IV Titration 600 Amount Sodium Chloride 0.9% 1, 600 000 ml @ 75 mls/hr IV . [id number] ON LICENSE OF [facility] Rx#:[id number] Oral 118 Other: Voiding Method Toilet Toilet Toilet - Labs CBC & Chem 7: 10/19/22 05:39 10/19/22 05:39
--- NOTE | 2022-10-20 20:19 | P.DS ---
Providers Date of admission: 10/17/22 00:10 Attending physician: Damian Alarcon Consults: 10/17/22 00:01 Consult Physician Urgent Consulting Provider: [facility] Consult Reason/Comments: acute chest pain, nstemi Do you want consulting provider notified?: Yes Primary care physician: Tomi Werner [facility] Course: diagnoses: 1. elevated troponin,Non-ST elevation MIis suspected however patient had unremarkable cardiac cath 2. Uncontrolled hypertension; better controlled now 3. Chronic back pain 4. Hyperlipidemia; Hospital course: 61-year-old female with no reported past medical history presents emergency department reporting left arm pain.troponin elevated. The patient suspected to have numbness STEMI, trade recruiter evaluated the patient. Patient had unremarkable cardiac cath. Blood pressure was uncontrolled on admission now significantly improved after started her blood pressure medication of Coreg & Valsartan, patient informed and she agrees and prescription were sent to the pharmacy. CTA was negative for PE. Ejection fraction 55-60% Today was sitting up in chair and walking the hallway normally. She denies chest pain or dyspnea. She denies any other complaints. No new complaints from GI or urinary or neurological. I discussed the case with trade recruiter team who cleared her for discharge. Patient denies any other new symptoms. Problems and management plan were discussed with the patient and he verbalized understanding and acceptance Patient was found stable and can be discharged home in guarded prognosis however he needs follow-up as an outpatient. Patient was instructed to follow up with PCPDr. Werner within one week and patient agrees patient informed and instructed to follow up with Dr. Zhong in one week after discharge and she agrees Physical exam Gen: patient is a AAOx3, no distress CVS: S1-S2, RRR, no murmur Lungs: B/L CTA, no wheezing Abdomen: soft, no distention, no tenderness, positive bowel sounds Extremity: no leg edema or induration Time spent more than 35 minutes Patient Condition at Discharge: Stable Plan - Discharge Summary Discharge Rx Participant: No New Discharge Prescriptions: New RX: carvediloL [Coreg] 3.125 mg PO BID-W/MEALS #60 tab RX: Valsartan [Diovan] 80 mg PO BID #60 tab RX: Atorvastatin [Lipitor] 40 mg PO HS #30 tab Discontinued Naproxen [Naprosyn] 500 mg PO BID PRN PRN Reason: Pain No Action carisoprodoL [Soma] 350 mg PO TID PRN PRN Reason: Muscle Pain Acyclovir [Zovirax] 400 mg PO TID PRN PRN Reason: HERPES OUTBREAK Discharge Medication List Acyclovir [Zovirax] 400 mg PO TID PRN 10/16/22 [History] carisoprodoL [Soma] 350 mg PO TID PRN 10/16/22 [History] RX: Atorvastatin [Lipitor] 40 mg PO HS #30 tab 10/20/22 [Rx] RX: Valsartan [Diovan] 80 mg PO BID #60 tab 10/20/22 [Rx] RX: carvediloL [Coreg] 3.125 mg PO BID-W/MEALS #60 tab 10/20/22 [Rx] Follow up Appointment(s)/Referral(s): Beau Howard MD [STAFF PHYSICIAN] - 10/26/22 8:45 am Tomi Werner DO [Primary Care Provider] - 1-2 days (PLEASE CALL AND SCHEDULE APPOINTMENT.) Patient Instructions/Handouts: Atorvastatin (By mouth), Valsartan (By mouth), Carvedilol (By mouth), Chronic Hypertension (DC), Low-Sodium Diet (DC), After Radial Heart Catheterization (GEN) Activity/Diet/Wound Care/Special Instructions: Heart failure diet, encourage oral hydration 1 week Activity is restricted until you see your doctor Try to avoid NSAIDs, naproxen especially for the first week. talk to your DrBandar first Discharge Disposition: HOME SELF-CARE
== END 2022-10-20 09:37 | disposition home or self-care (01) | DRG 282 ==
LOC: EC 19:20 → 1SOBS 10-17 00:10 → 3SCARD 10-17 13:13
PROVIDERS: ADMIT Hospitalist; ATTEND Hospitalist
PROC: 4A023N7 Measurement of Cardiac Sampling and Pressure, Left Heart, Percutaneous Approach (ICD-10-PCS; principal; 2022-10-19 09:55)
PROC: B2111ZZ Fluoroscopy of Multiple Coronary Arteries using Low Osmolar Contrast (ICD-10-PCS; principal; 2022-10-19 09:55)
DX: I21.4 Non-ST elevation (NSTEMI) myocardial infarction (principal); E78.5 Hyperlipidemia, unspecified; G89.29 Other chronic pain; I10 Essential (primary) hypertension; R41.0 Disorientation, unspecified; M54.9 Dorsalgia, unspecified; Z79.899 Other long term (current) drug therapy; Z82.49 Family history of ischemic heart disease and other diseases of the circulatory system; Z88.0 Allergy status to penicillin
CPT/HCPCS: 36415; 71046; 71275; 80048; 80053; 80061; 83690; 83735; 83880; 84484; 85025; 85610; 85730; 93005; 93306; 93458; 96365; 96366; 96375; 96376; 99291

== ENCOUNTER 2022-10-21 16:33 | Emergency (ER) | payer OTHER ==
[2022-10-21 16:50] VITALS: TEMP 97.7
[2022-10-21 17:38] LABS: Basophils # (A) 0.1 k/uL (0-0.2); Basophils % (A) 1 %; Eosinophils # (A) 0.3 k/uL (0-0.7); Eosinophils % (A) 4 %; HCT 38.2 % (34.0-46.0); HGB 12.7 gm/dL (11.4-16.0); Lymphocytes # (A) 1.9 k/uL (1.0-4.8); Lymphocytes % (A) 28 %; MCH 30.9 pg (25.0-35.0); MCHC 33.3 g/dL (31.0-37.0); MCV 92.6 fL (80.0-100.0); Mean Platelet Volume 8.8; Monocytes # (A) 0.3 k/uL (0-1.0); Monocytes % (A) 4 %; Neutrophils # (A) 4.3 k/uL (1.3-7.7); Neutrophils % (A) 62 %; Platelet Count 195 k/uL (150-450); RBC 4.13 m/uL (3.80-5.40); RDW 13.9 % (11.5-15.5); WBC 6.9 k/uL (3.8-10.6)
[2022-10-21 17:50] LABS: ALT 35 U/L (4-34); AST 51 U/L (14-36); African American GFR (CKD) >90 (>60 ml/min/1.73 sqM); Albumin 4.2 g/dL (3.5-5.0); Alkaline Phosphatase 83 U/L (38-126); Anion Gap 7 mmol/L; Blood Urea Nitrogen 8 mg/dL (7-17); Calcium 9.2 mg/dL (8.4-10.2); Carbon Dioxide 28 mmol/L (22-30); Chloride 106 mmol/L (98-107); Glucose 102 mg/dL (74-99); Non-African American GFR(CKD) 89 (>60 ml/min/1.73 sqM); Potassium 4.2 mmol/L (3.5-5.1); Sodium 141 mmol/L (137-145); Total Bilirubin 0.4 mg/dL (0.2-1.3); Total Protein 7.3 g/dL (6.3-8.2)
[2022-10-21 20:19] VITALS: RESP 18
--- NOTE | 2022-10-21 20:44 | XR ---
EXAMINATION TYPE: XR chest 2V DATE OF EXAM: 10/21/2022 8:23 PM COMPARISON: Chest radiographs from 10/16/2022 TECHNIQUE: XR chest 2V Frontal and lateral views of the chest. CLINICAL INDICATION:Female, 61 years old with history of L arm pain; FINDINGS: Lungs/Pleura: Prominent interstitial lung markings are seen scattered throughout the lungs. Leading o f the diaphragm increased lucency in the lung apices. No evidence of focal consolidation, pneumothora x or pleural effusion. Pulmonary vascularity: Unremarkable. Heart/mediastinum: Cardiomediastinal silhouette is unremarkable. Atherosclerotic calcifications are seen in the aorta. Musculoskeletal: No acute osseous pathology. IMPRESSION: Chronic changes without acute pulmonary process. No significant change from prior. COPD changes.
--- NOTE | 2022-10-21 21:28 | ED ---
General Adult HPI - General Chief complaint: Headache Stated complaint: Hypertension/left arm pain Time Seen by Provider: 10/21/22 19:01 Source: patient Mode of arrival: ambulatory - History of Present Illness Initial comments: Patient is a 61-year-old female presenting with chief complaint of hypertension. Patient states that at home her BP was reading 200 systolic. This was accompanied by a headache and some left arm pain. Patient was recently admitted for an STEMI and underwent catheterization which showed normal coronary arteries. At time of assessment she reports that her headache has improved. Here in the ER blood pressure was initially 146/79. No chest pain, difficulty breathing, palpitations, weakness, numbness, tingling, vision or hearing changes, neck pain or stiffness, abdominal pain, nausea, vomiting, dizziness. - Related Data Home Medications Medication Instructions Recorded Confirmed Acyclovir [Zovirax] 400 mg PO TID PRN 10/16/22 10/16/22 carisoprodoL [Soma] 350 mg PO TID PRN 10/16/22 10/16/22 Previous Rx's Medication Instructions Recorded Atorvastatin [Lipitor] 40 mg PO HS #30 tab 10/20/22 Valsartan [Diovan] 80 mg PO BID #60 tab 10/20/22 carvediloL [Coreg] 3.125 mg PO BID-W/MEALS #60 tab 10/20/22 Allergies Allergy/AdvReac Type Severity Reaction Status Date / Time Penicillins Allergy Unknown Verified 10/16/22 20:53 Childhood Review of Systems ROS Statement: Those systems with pertinent positive or pertinent negative responses have been documented in the HPI. ROS Other: All systems not noted in ROS Statement are negative. Past Medical History Additional Past Medical History / Comment(s): sariatic arthritis, hep c, herpes History of Any Multi-Drug Resistant Organisms: None Reported Past Surgical History: Back Surgery Past Anesthesia/Blood Transfusion Reactions: No Reported Reaction Past Psychological History: No Psychological Hx Reported Smoking Status: Former smoker Past Alcohol Use History: None Reported - Past Family History Mother Additional Family Medical History / Comment(s): TB Father Family Medical History: Coronary Artery Disease (CAD) General Exam Limitations: no limitations General appearance: alert, in no apparent distress Head exam: Present: atraumatic, normocephalic, normal inspection Eye exam: Present: normal appearance Neck exam: Present: normal inspection Respiratory exam: Present: normal lung sounds bilaterally. Absent: respiratory distress, wheezes, rales, rhonchi, stridor Cardiovascular Exam: Present: regular rate, normal rhythm, normal heart sounds. Absent: systolic murmur, diastolic murmur, rubs, gallop, clicks Neurological exam: Present: alert, oriented X3, CN II-XII intact Psychiatric exam: Present: normal affect, normal mood Skin exam: Present: warm, dry, intact, normal color. Absent: rash Course Vital Signs 10/21/22 10/21/22 10/21/22 16:46 20:18 21:45 Temperature 97.7 F Pulse Rate 58 L 60 78 Respiratory 16 18 18 Rate Blood Pressure 146/79 155/80 143/78 O2 Sat by Pulse 99 96 96 Oximetry EKG Findings - EKG Comments: EKG Findings:: Sinus bradycardia ventricular rate 49. ID interval 132. QRS 98. QTC 440. QTc 409. Significant change from previous EKG. Medical Decision Making - Medical Decision Making Was pt. sent in by a medical professional or institution (, PA, URGENT CARE NURSE PRACTITIONER, urgent care, hospital, or senior living...) When possible be specific @ -No Did you speak to anyone other than the patient for history (EMS, parent, family, police, friend...)? What history was obtained from this source @ -No Did you review nursing and triage notes (agree or disagree)? Why? @ -I reviewed and agree with nursing and triage notes Were old charts reviewed (outside hosp., previous admission, EMS record, old EKG, old radiological studies, urgent care reports/EKG's, senior living records)? Report findings @ -Previous admission charts were reviewed Differential Diagnosis (chest pain, altered mental status, abdominal pain women, abdominal pain men, vaginal bleeding, weakness, fever, dyspnea, syncope, headache, dizziness, GI bleed, back pain, seizure, CVA, palpatations, mental health)? @Differential includes an STEMI, STEMI, hypertension, hypertensive emergency EKG interpreted by me (3pts min.). @ -As above X-rays interpreted by me (1pt min.). @ -Chest x-ray shows no acute process CT interpreted by me (1pt min.). @ -None done U/S interpreted by me (1pt. min.). @ -None done What testing was considered but not performed or refused? (CT, X-rays, U/S, labs)? Why? @ -None What meds were considered but not given or refused? Why? @ -None Did you discuss the management of the patient with other professionals (ginger conway i.e. , PA, URGENT CARE NURSE PRACTITIONER, lab, RT, psych nurse, social media editor, plastic dolls mold filler, teacher, radio division officer, briefcase sewer)? Give summary @ -No Was smoking cessation discussed for >3mins.? @ -No Was critical care preformed (if so, how long)? @ -No Were there social determinants of health that impacted care today? How? (Homelessness, low income, unemployed, alcoholism, drug addiction, transportation, low edu. Level, literacy, decrease access to med. care, half-way, rehab)? @ -No Was there de-escalation of care discussed even if they declined (Discuss DNR or withdrawal of care, Hospice)? DNR status @ -No What co-morbidities impacted this encounter? (DM, HTN, Smoking, COPD, CAD, Cancer, CVA, ARF, Chemo, Hep., AIDS, mental health diagnosis, sleep apnea, morbid obesity)? @ -Recent and STEMI, hypertension Was patient admitted / discharged? Hospital course, mention meds given and route, prescriptions, significant lab abnormalities, going to OR and other pertinent info. @ -Patient is a 61-year-old female presenting with chief complaint of hypertension with at home blood pressure reading in the 200 systolic. She admits to previous headache which has now dissipated as well as some left arm pain. No chest pain or difficulty breathing. On physical examination there is no focal neurological deficit, heart and lungs are clear to auscultation. Lab work shows troponin of 0.068 which is trending downward from previous values from recent admission. Mild transaminitis is noted. Otherwise lab work is unremarkable. Chest x-ray shows no acute process. EKG is unchanged from previous. On reassessment patient reports improvement in her symptoms. Blood pressure has ranged from 140s to 150s systolic during her course. Discharged home. Follow-up with PCP. Report back to ER with any new or worsening symptoms. Discussed return parameters and answered all questions. Patient conveyed verbal understanding and agreed to the plan. I discussed this case in detail with my attending Dr. Velasquez Undiagnosed new problem with uncertain prognosis? @ -No Drug Therapy requiring intensive monitoring for toxicity (Heparin, Nitro, Insulin, Cardizem)? @ -No Were any procedures done? @ -No Diagnosis/symptom? @ -Hypertension Acute, or Chronic, or Acute on Chronic? @ -Chronic Uncomplicated (without systemic symptoms) or Complicated (systemic symptoms)? @ -complicated Side effects of treatment? @ -No Exacerbation, Progression, or Severe Exacerbation? @ -No Poses a threat to life or bodily function? How? (Chest pain, [place], [place], pneumonia, PE, COPD, DKA, ARF, appy, cholecystitis, CVA, Diverticulitis, Homicidal, Suicidal, threat to staff... and all critical care pts) @ -no - Lab Data Result diagrams: 10/21/22 17:20 10/21/22 17:20 Lab Results 10/21/22 10/21/22 10/21/22 Range/Units 17:20 17:20 20:16 WBC 6.9 (3.8-10.6) k/uL RBC 4.13 (3.80-5.40) m/uL Hgb 12.7 (11.4-16.0) gm/dL Hct 38.2 (34.0-46.0) % MCV 92.6 (80.0-100.0) fL MCH 30.9 (25.0-35.0) pg MCHC 33.3 (31.0-37.0) g/dL RDW 13.9 (11.5-15.5) % Plt Count 195 (150-450) k/uL MPV 8.8 Neutrophils % 62 % Lymphocytes % 28 % Monocytes % 4 % Eosinophils % 4 % Basophils % 1 % Neutrophils # 4.3 (1.3-7.7) k/uL Lymphocytes # 1.9 (1.0-4.8) k/uL Monocytes # 0.3 (0-1.0) k/uL Eosinophils # 0.3 (0-0.7) k/uL Basophils # 0.1 (0-0.2) k/uL Sodium 141 (137-145) mmol/L Potassium 4.2 (3.5-5.1) mmol/L Chloride 106 (98-107) mmol/L Carbon Dioxide 28 (22-30) mmol/L Anion Gap 7 mmol/L BUN 8 (7-17) mg/dL Creatinine 0.73 (0.52-1.04) mg/dL Est GFR (CKD-EPI)AfAm >90 (>60 ml/min/1.73 sqM) Est GFR (CKD-EPI)NonAf 89 (>60 ml/min/1.73 sqM) Glucose 102 H (74-99) mg/dL Calcium 9.2 (8.4-10.2) mg/dL Total Bilirubin 0.4 (0.2-1.3) mg/dL AST 51 H (14-36) U/L ALT 35 H (4-34) U/L Alkaline Phosphatase 83 (38-126) U/L Troponin I 0.068 H* (0.000-0.034) ng/mL Total Protein 7.3 (6.3-8.2) g/dL Albumin 4.2 (3.5-5.0) g/dL Disposition Clinical Impression: Hypertension, Headache Disposition: HOME SELF-CARE Condition: Good Instructions (If sedation given, give patient instructions): Acute Headache (ED), Hypertension (ED) Additional Instructions: Follow-up with PCP and structural steel erector. Report back to ER with any new or worsening symptoms. Is patient prescribed a controlled substance at d/c from ED?: No Referrals: Tomi Werner DO [Primary Care Provider] - 1-2 days Beau Howard MD [Family Provider] - 1-2 days Time of Disposition: 21:28
[2022-10-21 21:46] VITALS: BP 143/78; PULSE 78
== END 2022-10-21 21:50 | disposition home or self-care (01) ==
LOC: EC 16:33
DX: R51.9 Headache, unspecified (principal); I10 Essential (primary) hypertension; Z87.891 Personal history of nicotine dependence; Z88.0 Allergy status to penicillin
CPT/HCPCS: 36415; 71046; 80053; 84484; 85025; 93005; 99284

== ENCOUNTER 2024-04-05 08:58 | Day surgery (SDC) | payer OTHER ==
[2024-04-03 10:13] VITALS: BMI 29.8
[~2024-04-05 08:58] MED LIST: LIDOCAINE 1% (10MG/ML) FOR IV START INTRADERMA PRN
[2024-04-05] MEDS: IV FLUID CONTINUATION 1,000 ML IV ONE (09:18)
[2024-04-05 09:31] VITALS: TEMP 96.9
[2024-04-05] MEDS: LACTATED RINGERS 1,000 ML IV SCH (09:38)
[2024-04-05] MEDS ORDERED: PROPOFOL 10 MG/ML 20 ML VIAL IV ONE (10:15)
--- NOTE | 2024-04-05 10:30 | P.PCN ---
Date of Procedure: 04/05/24 Procedure(s) Performed: BRIEF HISTORY: Patient is a 63-year-old pleasant white female scheduled for an elective colonoscopy as a part of evaluation of positive Cologuard/screening for colon cancer PROCEDURE PERFORMED: Colonoscopy with biopsy and snare polypectomy. PREOPERATIVE DIAGNOSIS: Screening for colon cancer/positive:. IV sedation per Anesthesia. PROCEDURE: After informed consent was obtained, the patient, was brought into the endoscopy unit. IV sedation was administered by Anesthesia under continuous monitoring. Digital rectal examination was normal. Initially the Olympus CF-160 flexible video colonoscope was then inserted in the rectum, gradually advanced into the cecum without any difficulty. Careful examination was performed as the scope was gradually being withdrawn. Ileocecal valve and the appendiceal orifice were visualized and appeared normal. Prep was excellent. Mucosa of the cecum, ascending colon appeared normal. In the hepatic flexure there was a 3 mm polyp that was removed by cold biopsy. In the transverse colon there was a 1 cm polyp removed by snare polypectomy. Rest of the, transverse colon, descending colon, sigmoid colon, and rectum appeared normal. Scattered sigmoid diverticulosis retroflexion was performed in the rectum and grade 2 internal hemorrhoids were seen. The patient tolerated the procedure well. IMPRESSION: 1 cm transverse colon polyp status post snare polypectomy 3 mm hepatic flexure polyp status post polypectomy Scattered sigmoid diverticulosis Grade 2 internal hemorrhoids RECOMMENDATIONS: Findings of this examination were discussed with the patient and her family. She was advised to follow-up with the biopsy results. If the biopsy reveals adenoma she can have repeat colonoscopy in 3 years..
[2024-04-05 10:37] VITALS: PULSE 74; RESP 16
[2024-04-05 10:53] VITALS: BP 115/63
== END 2024-04-05 11:21 | disposition home or self-care (01) ==
LOC: ORWHC2ENDO 08:58
PROVIDERS: ATTEND Internal Medicine Gastroenterology
DX: D12.3 Benign neoplasm of transverse colon (principal); K57.30 Diverticulosis of large intestine without perforation or abscess without bleeding; K64.1 Second degree hemorrhoids; I10 Essential (primary) hypertension; G47.33 Obstructive sleep apnea (adult) (pediatric); E07.9 Disorder of thyroid, unspecified; Z79.890 Hormone replacement therapy; Z79.899 Other long term (current) drug therapy; Z98.890 Other specified postprocedural states
CPT/HCPCS: 88305; 45380; 45385; J2704